=== PATIENT | male | born 1955 | race Caucasian/White ===

== ENCOUNTER 2017-09-19 22:22 | Emergency (ER) | payer BC ==
--- NOTE | 2017-09-19 23:19 | ED Physician Chart ---
ED Chief Complaint/HPI - Patient Information Date Seen:: 09/19/17 Time Seen:: 23:00 Chief Complaint:: pain right mid back History of Present Illness:: Patient has had pain right mid back for the last 2 weeks increased for the last 4 days. No trauma. Allergies:: Allergies Allergy/AdvReac Type Severity Reaction Status Date / Time hydromorphone [From Dilaudid] Allergy Verified 09/19/17 23:02 [place] Reductase Allergy Verified 09/19/17 23:02 Inhibitor Vitals:: Vital Signs - 8 hr 09/19/17 22:30 Temp 97.8 F HR 95 RR 18 BP 152/86 O2 Sat % 95 Historian:: Patient ED Review of Systems - Review of Systems General/Constitutional: No fever, No chills Skin: No skin lesions Head: No headache Eyes: Acuity change ENT: No earache Neck: No neck pain, No swelling Cardio Vascular: No chest pain, No palpitations Pulmonary: No SOB GI: No nausea, No vomiting, No diarrhea G/U: No dysuria Musculoskeletal: Bone or joint pain Endocrine: No polyuria, No polydipsia Psychiatric: No prior psych history Hematopoietic: No bruising Allergic/Immuno: No urticaria Neurological: No syncope, No focal symptoms ED Past Medical History - Past Medical History Past Medical History: Other (rheumatoid arthritis) Family History: Heart disease, Diabetes Melitus, HTN, Cancer Social History: Non Smoker, No Alcohol Surgical History: Cholecystectomy, other (diverticulitis; right small finger; left shoulder for rotator cuff) Psychiatricy History: None Medication: None Family Medical History - Family Member Mother History Unknown: Yes ED Physical Exam - Physical Examination General/Constitutional: Well-developed, well-nourished, Alert, No distress Head: Atraumatic Eyes: Lids, conjuctiva normal, PERRL Skin: Nl inspection, No rash ENMT: External ears, nose nl, TM canals nl, Nasal exam nl, Lips, teeth, gums nl Neck: No nuchal rigidity Respiratory: Nl effort/Exclusion, Clear to Auscultation, No Wheeze/Rhonchi/Rales Other Respiratory comments:: Point tenderness over inferior tip of right scapula Cardio Vascular: RRR, No murmur, gallop, rubs, NL S1 S2 GI: No tenderness/rebounding/guarding, No organomegaly, No hernia, Normal BS's, Nondistended, No mass/bruits, No McBurney tenderness : No CVA tenderness Extremities: Normal digits & nails Neuro/Psych: Alert/oriented Other:: As stated above point tenderness over inferior tip of. right scapula ED Labs/Radiology/EKG Results - Radiology Results Results: X-ray right scapula negative ED Assessment - Assessment General Assessment: Patient got some relief with Toradol 30 mg intramuscularly. I assume that the pain is related to his rheumatoid arthritis since x-ray of the right scapula was negative. ED Septic Shock - . Is Septic Shock (SBP<90, OR Lactate>4 mmol\L) present?: No - <6hrs of presentation: Vital Signs: Vital Signs - 8 hr 09/19/17 22:30 Temp 97.8 F HR 95 RR 18 BP 152/86 O2 Sat % 95 ED Reassessment (Disposition) - Reassessment Reassessment Condition:: Improved - Diagnosis Diagnosis:: Musculoskeletal back pain - Aftercare/Follow up Instructions Aftercare/Follow-Up Instructions:: Refer to Discharge Instructions Medication Prescribed:: [place] 10/325 #12 to take 1 4 times a day as necessary for pain - Patient Disposition Discharge/Transfer:: Home Condition at Disposition:: Stable, Improved ED Discharge Plan - Patient Disposition Instructions: Muscle Strain, [id number] Additional Instructions: follow up with your primary medical doctor DRE take prescribed medications as ordered
--- NOTE | 2017-09-20 08:19 | Diagnostic Imaging Report ---
Right scapula 3 views Indication: Pain at the inferior tip of the scapula Comparison: none Findings: Moderate AC joint and mild glenohumeral joint degenerative changes are noted. No evidence of an acute fracture or dislocation. No obvious mass lesions identified. Impression: No evidence of an acute fracture. Degenerative changes. Consider follow up exams symptoms persist. In the setting of trauma, if clinical symptoms persist and there is continued concern for an occult fracture, follow up exams in 5-7 days is suggested.
== END 2017-09-19 23:55 | disposition home or self-care (01) ==
LOC: ER 22:22
DX: M54.9 Dorsalgia, unspecified (principal); Z90.49 Acquired absence of other specified parts of digestive tract; Z88.8 Allergy status to other drugs, medicaments and biological substances
CPT/HCPCS: 99284; 96372; 73010; J1885; Z7502